=== PATIENT | male | born 1995 | race Caucasian/White ===

== ENCOUNTER 2018-11-09 05:10 | Day surgery (SDC) | payer OTHER ==
[~2018-11-09] VITALS: Ht 170.2 cm; Wt 70.8 kg
[2018-11-09] MEDS ORDERED: ZOLOFT100 MG PO (05:48)
[2018-11-09] MEDS ORDERED: MOBIC7.5 MG PO (05:50)
[2018-11-09] MEDS ORDERED: TOPAMAX50 MG PO (05:50)
[2018-11-09 05:52] LABS: BASOPHILS 0.3 % (0-2); HEMATOCRIT 42.7 % (42.0-54.0); HEMOGLOBIN 14.9 g/dL (13.5-17.5); IMMATURE GRANULOCYTES 0.1 % (0-5); LYMPHOCYTES 47.6 % (15-50); MCH 29.6 pg (26.0-34.0); MCHC 34.9 g/dL (31.0-37.0); MCV 84.9 fL (80.0-100.0); MEAN PLATELET VOLUME 9.8 fL (7.4-10.4); MONOCYTES 7.6 % (2-11); NEUTROPHILS 39.4 % (40-80); PLATELET COUNT 240 10x3/uL (130-400); RBC 5.03 10x6/uL (4.20-6.10); RDW 12.7 % (11.5-14.5); WBC 7.7 10x3/uL (4.8-10.8)
[2018-11-09 06:05] LABS: CALC OSMOLALITY 281 mosm/kg (275-300); CALCIUM 8.8 mg/dL (8.5-10.1); CHLORIDE - SERUM 107 mmol/L (98-107); CREATININE - SERUM 0.9 mg/dL (0.6-1.3); GLUCOSE 88 mg/dL (74-106); POTASSIUM - SERUM 4.2 mmol/L (3.5-5.1); SODIUM 142 mmol/L (136-145); UREA NITROGEN 13 mg/dL (7-18); eGFR NON AFRICAN AMERICAN > 90 mL/min (90-120)
[2018-11-09 06:10] VITALS: BP 101/54; Ht 170.2 cm; Wt 70.8 kg
--- NOTE | 2018-11-09 09:56 | NUR ---
0950-RECD TO ROOM FROM PACU WITH GUARDS PRESENT. ALERT, IV PATENT. R KNEE DRESSING DRY AND INTACT. 0955-FULL LIQUIDS SERVED.
--- NOTE | 2018-11-09 10:23 | NUR ---
1020 IV REMOVED AND PRESSURE HELD. PALP PULSE IN RT FOOT. WIGGLES TOES ENCOURAGED TO ELEVATE. POST OP INSTRUCTIONS GIVEN
== END 2018-11-09 10:50 ==
LOC: D.OPS 05:10
PROVIDERS: ATTEND Orthopaedic Surgery
DX: S83.231A Complex tear of medial meniscus, current injury, right knee, initial encounter (principal); S83.511A Sprain of anterior cruciate ligament of right knee, initial encounter; M65.861 Other synovitis and tenosynovitis, right lower leg; Z01.812 Encounter for preprocedural laboratory examination

== ENCOUNTER 2018-12-21 05:08 | Outpatient (CLI) | payer OTHER ==
[~2018-12-21] VITALS: Ht 170.2 cm; Wt 71.2 kg
[~2018-12-21 05:08] MED LIST: MOBIC7.5 MG PO; TOPAMAX50 MG PO; ZOLOFT100 MG PO
[2018-12-21 05:57] LABS: BASOPHILS 0.1 % (0-2); EOSINOPHILS 3.4 % (0-7); HEMATOCRIT 40.5 % (42.0-54.0); HEMOGLOBIN 14.4 g/dL (13.5-17.5); IMMATURE GRANULOCYTES 0.1 % (0-5); LYMPHOCYTES 43.1 % (15-50); MCH 29.8 pg (26.0-34.0); MCHC 35.6 g/dL (31.0-37.0); MCV 83.9 fL (80.0-100.0); MEAN PLATELET VOLUME 9.8 fL (7.4-10.4); MONOCYTES 7.3 % (2-11); PLATELET COUNT 219 10x3/uL (130-400); RBC 4.83 10x6/uL (4.20-6.10); RDW 13.2 % (11.5-14.5); WBC 7.1 10x3/uL (4.8-10.8)
[2018-12-21 06:34] LABS: CALC OSMOLALITY 285 mosm/kg (275-300); CARBON DIOXIDE 20.3 mmol/L (21.0-32.0); CHLORIDE - SERUM 110 mmol/L (98-107); CREATININE - SERUM 0.9 mg/dL (0.6-1.3); GLUCOSE 90 mg/dL (74-106); SODIUM 143 mmol/L (136-145); UREA NITROGEN 16 mg/dL (7-18); eGFR NON AFRICAN AMERICAN > 90 mL/min (90-120)
[2018-12-21 06:43] VITALS: BP 101/47; Ht 170.2 cm; Wt 71.2 kg
--- NOTE | 2018-12-21 09:16 | NUR ---
0910 DR. ORELLANA CANCELLED FOR TODAY AND RESCHEDULED FOR TOMORROW GUARDS NOTIFIED, JUICE SERVED PT. RELEASED WITH GUARDS.
== END 2018-12-21 09:15 | disposition home or self-care (01) ==
LOC: D.OPS 05:08 → EDSTATUS 07:30 → D.OPS 07:30
PROVIDERS: ATTEND Orthopaedic Surgery
DX: S83.31XA Tear of articular cartilage of right knee, current, initial encounter (principal); X58.XXXA Exposure to other specified factors, initial encounter

== ENCOUNTER 2019-01-11 05:10 | Day surgery (SDC) | payer OTHER ==
[~2019-01-11] VITALS: Ht 172.7 cm; Wt 72.6 kg
[2019-01-11 05:53] LABS: BASOPHILS 0.1 % (0-2); EOSINOPHILS 0.7 % (0-7); HEMATOCRIT 41.5 % (42.0-54.0); HEMOGLOBIN 14.9 g/dL (13.5-17.5); IMMATURE GRANULOCYTES 0.2 % (0-5); MCH 30.3 pg (26.0-34.0); MCHC 35.9 g/dL (31.0-37.0); MCV 84.5 fL (80.0-100.0); MEAN PLATELET VOLUME 9.8 fL (7.4-10.4); MONOCYTES 6.6 % (2-11); NEUTROPHILS 64.4 % (40-80); PLATELET COUNT 223 10x3/uL (130-400); RBC 4.91 10x6/uL (4.20-6.10); RDW 12.6 % (11.5-14.5); WBC 8.6 10x3/uL (4.8-10.8)
[2019-01-11 06:07] LABS: CALC OSMOLALITY 281 mosm/kg (275-300); CALCIUM 9.2 mg/dL (8.5-10.1); CARBON DIOXIDE 24.5 mmol/L (21.0-32.0); CHLORIDE - SERUM 107 mmol/L (98-107); GLUCOSE 89 mg/dL (74-106); POTASSIUM - SERUM 3.8 mmol/L (3.5-5.1); SODIUM 142 mmol/L (136-145); UREA NITROGEN 13 mg/dL (7-18); eGFR NON AFRICAN AMERICAN > 90 mL/min (90-120)
[2019-01-11 07:52] VITALS: BP 115/60; Ht 172.7 cm; Wt 72.6 kg
--- NOTE | 2019-01-11 08:47 | NUR ---
DR. MARS NOTIFIED AND 1:1 SITTER OBSERVATION ORDERED. SITTER AT BEDSIDE. NOTIFIED CHARGE NURSE AND ATTENDING IN REGARDS TO ASSESSMENT FINDINGS. RESOURCES GIVEN TO PATIENT AND SAFETY PLAN INITIATED.
--- NOTE | 2019-01-11 10:25 | NUR ---
PATIENT HAS RED RASH ON RIGHT UPPER THIGH ABOVE TOURNIQUET SITE. NOTICED WHEN PATIENT WAS MOVING TO OPERATING TABLE BEFORE PUTTING TOURNIQUET ON RIGHT UPPER THIGH. KD
--- NOTE | 2019-01-11 12:04 | NUR ---
DR. MARS NOTIFIED AND REVIEWED PATIENT'S BEHAVIOR AND ASSESSMENT RESULTS. PT IS A LOW RISK PER DR. MARS. DR. MARS STATED TO GIVE RESOURCES TO PATIENT AT TIME OF DISCHARGE. NO FURTHER ORDERS AT THIS TIME. RESOURCES REVIEWED WITH PATIENT AND HE VERBALIZED UNDERSTANDING. PATIENT REMAINS INCARCERATED AND IS IN CONSTANT SURVEILLANCE PER CORRECTIONAL FACILITY OFFICERS. PATIENT DENIES ANY DESIRE TO HARM SELF.
== END 2019-01-11 13:45 ==
LOC: D.OPS 05:10
PROVIDERS: Anesthesiology; ATTEND Orthopaedic Surgery
DX: S83.511A Sprain of anterior cruciate ligament of right knee, initial encounter (principal); M65.861 Other synovitis and tenosynovitis, right lower leg; Z01.812 Encounter for preprocedural laboratory examination